=== PATIENT | female | born 1990 | race American Indian/Alaskan Native ===

== ENCOUNTER 2021-05-09 14:47 | Outpatient (CLI) | payer MEDICAID, OTHER ==
[2021-05-09 15:22] VITALS: BP 125/78
[2021-05-09] MEDS ORDERED: LACTATED RINGERS 500 ML IV ONE ×2 (17:13→17:42)
--- NOTE | 2021-05-09 19:00 | Ultrasound Report ---
Cervical ultrasound limited INDICATION: Pelvic pain in IMPRESSION: The heart rate is under 54 bpm. The placenta is grade 2 and fundal in location. No definite abnormal placental separation is demonstrated on provided images. FER measures 10.3 cm. The fetus is in a transverse position. Signer Name: Shaw Medeiros MD Signed: 05/09/2021 6:56 PM Workstation Name: [id number]
== END 2021-05-09 17:33 | disposition home or self-care (01) ==
LOC: TRG 14:47 → APU 14:49 → TRG 17:33
PROVIDERS: ATTEND Obstetrics & Gynecology
DX: O46.93 Antepartum hemorrhage, unspecified, third trimester (principal); O26.853 Spotting complicating pregnancy, third trimester; Z3A.33 33 weeks gestation of pregnancy
CPT/HCPCS: 76815; J7120

== ENCOUNTER 2021-06-17 13:38 | Inpatient (IN) | payer OTHER ==
[2021-06-14 13:54] LABS: Hemoglobin 11.3 gm/dl (10.1-14.3); Mean Corpuscular HGB Conc 32 % (30-34); Mean Corpuscular Volume 76 fl (79-97); Platelet Count 386 K/mm3 (140-440); Red Blood Count 4.58 M/mm3 (3.65-5.03); Red Cell Distribution Width 34.3 % (13.2-15.2)
[2021-06-17] MEDS ORDERED: METOCLOPRAMIDE 10 MG/2 ML INJ IV SCH (15:47)
[2021-06-17] MEDS ORDERED: FAMOTIDINE 20 MG/2 ML INJ IV SCH (15:47)
[2021-06-17] MEDS ORDERED: BICITRA ORAL LIQD 30ML PO SCH (15:47)
[2021-06-17] MEDS ORDERED: ceFAZolin/Water 2 GM/20 ML 2 GM/20 ML SYRINGE IV SCH (16:00)
[2021-06-17] MEDS: LACTATED RINGERS 1,000 ML IV SCH ×2 (16:00→17:48)
--- NOTE | 2021-06-17 16:03 | History and Physical Report ---
History of Present Illness Date of examination: 06/17/21 Date of admission: 06/17/21 13:38 Chief complaint: Contractions and ROM History of present illness: LMP: 06/26/2021 EDC Confirmation: 06/26/2021 Gestational Age: 6 1/7 weeks Past History : 4 Term Births: 3 Living Children: 3 Para: 3 Prev : 1 Aborta: 0 # 1 Delivery date: 03/04/2008 Weeks Gestation: 38 Delivery type: Anesthesia type: IV Sex: Male weight: 4-10 # 2 Delivery date: 01/07/2016 Weeks Gestation: 37 Delivery type: Anesthesia type: epidural Infant Sex: Male weight: 6-5 # 3 Delivery date: 07/08/2018 Weeks Gestation: 39 Delivery type: Anesthesia type: epidural Delivery location: [facility] Sex: male weight: 6.56 Name: Carole Son Comments: hemorrhage BREECH DOUBLE FOOTLING Past Medical History: Reviewed and updated today: Anemia Fe infusion qd x5 Pressure in back of head and syncopy only during Past Surgical History: Reviewed and updated today: Risk Factors: Smoked Tobacco Use: Never smoker HIV High Risk Behavior: low risk Alcohol Use: no Drug Use: no Past Medical History Surgery (Non-advertising sales consultant): Abnormal PAP: negative SUJEY Exposure: negative Infertility: negative Uterine Anomaly: negative Uterine Surgery (not C/S): negative Other Gynecologic Problems: negative Social Hx: Patient is Smoking History: Patient has never smoked. Infection History Hx of STD: none HIV Risk Eval: low risk Hepatitis B Risk Eval: low risk Personal hx. of genital herpes: no Partner hx. of genital herpes: no Rash, Viral, or Febrile illness since last LMP? no Varicella/Chicken Pox Status: Previous Disease Genetic History Congenital Heart Defect: Mom: no Dad: no Chantelle Disease: Mom: no Dad: no Thalassemia Mom: no Dad: no Neural Tube Defect Mom: no Dad: no Down's Syndrome Mom: no Dad: no Calvin-Sachs Mom: no Dad: no Sickle Cell Disease/Trait Mom: no Dad: no Hemophilia Mom: no Dad: no Muscular Dystrophy Mom: no Dad: no Cystic Fibrosis Mom: no Dad: no [place] Chorea Mom: no Dad: no Mental Retardation Mom: no Dad: no Fragile X Mom: no Dad: no Other Genetic/Chromosomal Disorder Mom: no Dad: no Child w/other defect Mom: no Dad: no Other: 1st cousin autism Enviromental Exposures Xray Exposure: no Medication, drug, or alcohol use since LMP: no Chemical/Other Exposure: no Exposure to Cat Liter: no Hx of Parvovirus (Fifth Disease): no Occupational Exposure to Children: none Active Medications (reviewed today): ondansetron 8 mg tablet,disintegrating (ondansetron) Take 1 tablet by mouth twice a day as needed Put pill underneath your tongue every 12 hours as needed for nausea. Current Allergies (reviewed today): No known allergies Tests: (1) Profile I ([id number]) HBsAg Screen Negative Negative *1 RPR Non Reactive Non Reactive *2 Rubella Antibodies, IgG 4.45 index Immune >0.99 *3 Non-immune <0.90 Equivocal 0.90 - 0.99 Immune >0.99 ABO Grouping A *4 Rh Factor Positive *5 Please note: Prior records for this patient's ABO / Rh type are not available for additional verification. Antibody Screen See Final Results Negative *6 Tests: (2) Ab Scr+Antibody ID ([id number]) ! Antibody Screen [A] Positive Negative *7 ! Antibody Id. #1 WEAK *8 Antibody at this time is too weak to titer or ID. ! Genoveva Titer #1 <No Reported Value> *9 ! Antibody Id. #2 <No Reported Value> *10 ! Genoveva Titer #2 <No Reported Value> *11 Tests: (3) Profile I ([id number]) WBC [H] 11.2 x10E3/uL 3.4-10.8 *12 RBC 4.72 x10E6/uL 3.77-5.28 *13 Hemoglobin [L] 9.5 g/dL 11.1-15.9 *14 Hematocrit [L] 30.5 % 34.0-46.6 *15 MCV [L] 65 fL 79-97 *16 MCH [L] 20.1 pg 26.6-33.0 *17 MCHC [L] 31.1 g/dL 31.5-35.7 *18 RDW [H] 16.9 % 11.7-15.4 *19 Platelets 409 x10E3/uL 150-450 *20 Neutrophils 65 % Not Estab. *21 Lymphs 23 % Not Estab. *22 Monocytes 9 % Not Estab. *23 Eos 2 % Not Estab. *24 Basos 1 % Not Estab. *25 ! Immature Cells <No Reported Value> *26 Neutrophils (Absolute) [H] 7.3 x10E3/uL 1.4-7.0 *27 Lymphs (Absolute) 2.6 x10E3/uL 0.7-3.1 *28 Monocytes(Absolute) [H] 1.0 x10E3/uL 0.1-0.9 *29 Eos (Absolute) 0.2 x10E3/uL 0.0-0.4 *30 Baso (Absolute) 0.1 x10E3/uL 0.0-0.2 *31 ! Immature Granulocytes 0 % Not Estab. *32 ! Immature Grans (Abs) 0.0 x10E3/uL 0.0-0.1 *33 ! NRBC <No Reported Value> *34 Hematology Comments: <No Reported Value> *35 Tests: (4) T4+TSH+T3 Upt ([id number]) ! TSH-ICMA 0.13 uU/mL *36 Reference Range: Non- Adult 0.450-4.500 First Trimester 0.100-4.000 Second Trimester 0.200-4.000 Third Trimester 0.300-4.500 ! Thyroxine (T-4), Serum [H] 13.8 ug/dL *37 Reference Range: Adults: 4.2 - 13.0 ! Resin T3 Uptake, Serum [L] 19.8 % *38 Reference Range: Children and Adults: 22.5-37.0 ! Resin T3 Uptake RATIO [L] 0.66 *39 Reference Range: Children and Adults: 0.75-1.23 ! Free Thyroxine Index 2.7 ug/dL *40 Reference Range: Children and Adults: 1.4 - 3.1 Tests: (5) Thyroid Panel ([id number]) Thyroxine (T4) [H] 12.3 ug/dL 4.5-12.0 *41 T3 Uptake 24 % 24-39 *42 Free Thyroxine Index 3.0 1.2-4.9 *43 Tests: (6) HB Solu + Rflx Frac ([id number]) Hemoglobin (Hgb) Solubility Negative Negative *44 Tests: (7) HIV Ag/Ab with Reflex ([id number]) HIV Screen 4th Generation wRfx Non Reactive Non Reactive *45 Tests: (8) HCV Antibody reflex to [place] ([id number]) HCV Ab <0.1 s/co ratio 0.0-0.9 *46 Tests: (9) Interpretation: ([id number]) ! Interpretation: SPRCS *47 Negative Not infected with HCV, unless recent infection is suspected or other evidence exists to indicate HCV infe Past History - Obstetrical History : 4 Medications and Allergies Allergies Allergy/AdvReac Type Severity Reaction Status Date / Time No Known Allergies Allergy Verified 06/13/21 18:04 Home Medications Medication Instructions Recorded Confirmed Last Taken Type Vit-Fe Fumar-FA [ 1 tab PO QDAY 05/09/21 06/13/21 05/09/21 History Vitamin] Magnesium Amino Acid Chelate 100 mg PO DAILY PRN 06/13/21 06/13/21 Unknown History [Magnesium] Active Meds: Active Medications Citric Acid/Sodium Citrate (Bicitra Oral Liqd 30ml) 30 ml PO ONCE LACEY Stop: 06/17/21 20:00 Famotidine (Famotidine 20 Mg/2 Ml Inj) 20 mg IV ONCE LACEY Oxytocin/Sodium Chloride (Pitocin/Ns 30 Unit/500ml) 30 units in 500 mls @ 0 mls/hr IV TITR LACEY Cefazolin Sodium (Ancef/Sterile Water 2 Gm/20 Ml) 2 gm in 20 mls @ 80 mls/hr IV PREOP LACEY; Protocol Stop: 06/17/21 20:00 Lactated Ringer's (Lactated Ringers) 1,000 mls @ 2,250 mls/hr IV PREOP LACEY Stop: 06/18/21 16:13 Metoclopramide HCl (Metoclopramide 10 Mg/2 Ml Inj) 10 mg IV ONCE LACEY - Vital Signs Vital signs: Vital Signs Temp Pulse Resp BP Pulse Ox 98.5 F 103 H 20 134/89 98 06/14/21 13:20 06/14/21 13:20 06/14/21 13:20 06/14/21 13:20 06/14/21 13:20 Temp Pulse Resp BP Pulse Ox 98.5 F 105 H 20 138/79 97 06/17/21 14:12 06/17/21 15:29 06/17/21 14:12 06/17/21 14:13 06/17/21 15:29 Results Result Diagrams: 06/14/21 06:00 Abnormal lab results 06/17/21 Range/Units 14:20 Membranes Rupture Positive A (Negative) All other labs normal. Assessment and Plan - Patient Problems (1) 38 weeks gestation of Current Visit: Yes Status: Acute (2) Precipitate labor Current Visit: Yes Status: Acute (3) Breech delivery Current Visit: Yes Status: Acute
[2021-06-17] MEDS ORDERED: propofoL 200 MG/20 ML VIAL IV ONE (16:21)
[2021-06-17] MEDS ORDERED: SUCCINYLCHOLINE CHLORIDE 200 MG/10 ML INJ MDV ONE (16:21)
[2021-06-17] MEDS ORDERED: OXYTOCIN DRIP 0 MILLIUNITS/0 ML BAG IV ONE (16:24)
[2021-06-17] MEDS ORDERED: KETAMINE/STERILE WATER 50 MG/ML SYRINGE ONE (16:38)
[2021-06-17] MEDS ORDERED: NITROGLYCERIN DRIP 50 MG/250 ML BOTTLE ONE (16:39)
[2021-06-17] MEDS ORDERED: miSOPROStol 200 MCG TAB ONE (16:43)
[2021-06-17] MEDS ORDERED: miSOPROStol 200 MCG TAB PR ONE (16:50)
--- NOTE | 2021-06-17 17:16 | Anesthesia Consultation ---
Anesthesia Consult and Med Hx Date of service: 06/17/21 - Airway Anesthetic Teeth Evaluation: Good ROM Head & Neck: Adequate Mental/Hyoid Distance: Adequate Mallampati Class: Class II Intubation Access Assessment: Probably Good - Pulmonary Exam CTA: Yes - Cardiac Exam Cardiac Exam: RRR - Pre-Operative Health Status ASA Pre-Surgery Classification: ASA2, Emergency Proposed Anesthetic Plan: Spinal (previous c/s), MAC - Pulmonary Hx Smoking: No Hx Asthma: Yes (as a child) Hx Respiratory Symptoms: No SOB: No COPD: No Hx Pneumonia: No Hx Sleep Apnea: No - Cardiovascular System Hx Hypertension: No Hx Coronary Artery Disease: No Hx Heart Attack/AMI: No Hx Angina: No Hx Percutaneous Transluminal Coronary Angioplasty (PTCA): No Hx Cardia Arrhythmia: No Hx Pacemaker: No Hx Internal Defibrillator: No Hx Valvular Heart Disease: No Hx Heart Murmur: No Hx Peripheral Vascular Disease: No - Central Nervous System Hx Neuromuscular Disorder: No Hx Seizures: Yes (Possible seizures when in 2016) CVA: No Hx Back Pain: No Hx Psychiatric Problems: No - Gastrointestinal Hx Ulcer: No Hx Gastroesophageal Reflux Disease: Yes - Endocrine Hx Renal Disease: No Hx End Stage Renal Disease: No Hx Cirrhosis: No Hx Liver Disease: No Hx Insulin Dependent Diabetes: No Hx Non-Insulin Dependent Diabetes: No Hx Thyroid Disease: No Hx Hypothyroidism: No Hx Hyperthyroidism: No - Hematic Hx Anemia: Yes (Received Iron infusions 04/2021) Hx Sickle Cell Disease: No - Other Systems Hx Alcohol Use: No Hx Substance Use: No Hx Cancer: No Hx Obesity: No
--- NOTE | 2021-06-17 17:16 | Anesthesia Day of Surgery ---
Anesthesia Day of Surgery - Day of Surgery Patient Examined: No (Emergently taken back for c/s) Patient H&P Reviewed: No Patient is NPO: No Beta Blockers: No Cardiac Clearance: No Pulmonary Clearance: No Grabiel's Test: N/A
--- NOTE | 2021-06-17 17:25 | Procedure Note ---
OB Delivery Note - Delivery Date of Delivery: 06/17/21 Surgeon: KARON GONZALES Estimated blood loss: 500cc - Vaginal Delivery presentation: breech (. ) Intrapartum events: precipitous labor- <3hr Delivery induction: none Delivery monitor: external FHT, external uterine Route of delivery: Delivery placenta: manual (Difficulty with delivering placenta after pitocin given. Nitroglycerin given by Anesthesia to allow for manual extraction. Cytotec 800mcg IN given as well as pitocin, most blood loss d/t delayed delivery of placenta. Scant blood from vagina with fundal massage. Fundus firm, no lacerations. ) Episiotomy: none Delivery laceration: none Anesthesia: other (MAC) Delivery comments: Patient was taken to the OR and placed on the OR bed. Exam revealed parts to be at +[address] patient in [place] and instrd to push, left foot delivered and extraction of right foot. Infant rotated to allow uncomplicated breech delivery with spontaneous cry and excellent tone. Mouth and nose were bulbed suctioned, cord doubly clamped and cut and given to MARGARET team who was present. - Infant A at 1 minute: 8 at 5 minutes: 9 Infant Gender: Female
[2021-06-17] MEDS ORDERED: ONDANSETRON 4 MG/2 ML INJ IV PRN ×2 (18:37)
[2021-06-17] MEDS ORDERED: METHYLERGONOVINE MALEATE 0.2 MG/ML VIAL IM PRN (18:37)
[2021-06-17] MEDS ORDERED: IBUPROFEN 600 MG TAB PO SCH (18:37)
[2021-06-17] MEDS ORDERED: MAGNESIUM HYDROXIDE (MOM) ORAL LIQD UDC PO PRN ×2 (18:37)
[2021-06-17] MEDS ORDERED: LOPERAMIDE 2 MG CAP PO PRN (18:37)
[2021-06-17] MEDS ORDERED: WITCH HAZEL/ GLYCERIN PAD TP PRN ×2 (18:37)
[2021-06-17] MEDS ORDERED: diphenhydrAMINE 25 MG CAP PO PRN ×2 (18:37)
[2021-06-17] MEDS ORDERED: PROMETHAZINE 25 MG RECT SUPP PR PRN ×2 (18:37)
[2021-06-17] MEDS ORDERED: LANOLIN/ZINC/DIMETHICONE (LANSINOH) 7 GM TP PRN ×2 (18:37)
[2021-06-17] MEDS ORDERED: OXYTOCIN DRIP 30 UNITS/500 ML BAG IV SCH (18:37)
[2021-06-17] MEDS ORDERED: ACETAMINOPHEN 325 MG TAB PO PRN (18:37)
[2021-06-17] MEDS ORDERED: PROMETHAZINE 25 MG TAB PO PRN ×2 (18:37)
[2021-06-17] MEDS ORDERED: CARBOPROST TROMETHAMINE 250 MCG/1 ML INJ IM PRN (18:37)
[2021-06-17] MEDS: KETOROLAC 30 MG/1 ML INJ IV PRN (18:52)
[2021-06-17] MEDS: traMADol 50 MG TAB PO PRN (21:59)
[2021-06-18] MEDS: KETOROLAC 30 MG/1 ML INJ IV PRN (00:38)
[2021-06-18] MEDS: traMADol 50 MG TAB PO PRN (04:18)
[2021-06-18 06:30] LABS: Hematocrit 31.7 % (30.3-42.9); Hemoglobin 10.4 gm/dl (10.1-14.3)
[2021-06-18 09:03] VITALS: BP 122/96
--- NOTE | 2021-06-18 11:13 | Progress Note ---
Assessment and Plan - Patient Problems (1) , delivered Current Visit: Yes Status: Acute Plan to address problem: -routine pp care -d/c home today if infant cleared for dc home. (2) Breech delivery Current Visit: Yes Status: Acute Subjective - Subjective Date of service: 06/18/21 Principal diagnosis: PPD #1 s/p breech delivery Interval history: Pt doing well and does desire d/c home today if cleared for d/c home. She does still want BTL and inquired about having hernia repair at the same time. I d/w that we can coordinate this in the office. She will not be d/c home on any bc at this time. I advised h/h is stable and normal. Patient reports: appetite normal, voiding normally, pain well controlled, no dizzy ambulation [place]: doing well, bottle feeding Objective - Vital Signs Latest vital signs: Vital Signs Temp Pulse Resp BP BP Pulse Ox Pulse Ox 06/18/21 07:57 97.4 F L 85 20 122/96 97 06/18/21 05:23 98.0 F 20 120/78 06/18/21 04:18 18 06/18/21 01:08 18 06/18/21 00:38 18 06/18/21 00:25 97.9 F 91 H 20 132/77 96 06/18/21 00:01 98 06/17/21 22:59 18 06/17/21 21:59 18 06/17/21 20:52 98.9 F 101 H 142/78 98 06/17/21 19:33 98.0 F 101 H 98 06/17/21 19:28 107 H 98 06/17/21 19:27 97 H 134/77 06/17/21 19:23 102 H 99 06/17/21 19:18 103 H 98 06/17/21 19:13 101 H 99 06/17/21 19:12 100 H 134/72 06/17/21 19:08 99 H 98 06/17/21 19:03 103 H 98 06/17/21 18:58 104 H 98 06/17/21 18:57 100 H 136/86 06/17/21 18:53 108 H 97 06/17/21 18:52 20 06/17/21 18:48 108 H 97 06/17/21 18:43 101 H 98 06/17/21 18:42 108 H 136/88 06/17/21 18:38 104 H 98 06/17/21 18:33 102 H 99 06/17/21 18:28 105 H 99 06/17/21 18:27 100 H 138/60 06/17/21 18:23 103 H 98 06/17/21 18:18 102 H 99 06/17/21 18:13 99 H 100 06/17/21 18:12 93 H 142/67 06/17/21 18:08 95 H 99 06/17/21 18:03 96 H 98 06/17/21 18:01 103 H 92 06/17/21 17:58 94 H 97 06/17/21 17:57 88 143/82 06/17/21 17:53 91 H 100 06/17/21 17:48 88 100 06/17/21 17:43 90 99 06/17/21 17:42 86 143/81 06/17/21 17:38 88 99 06/17/21 17:33 92 H 99 06/17/21 17:28 92 H 99 06/17/21 17:27 89 137/83 06/17/21 17:23 91 H 100 06/17/21 17:18 89 100 06/17/21 17:15 97.8 F 20 06/17/21 17:13 84 100 06/17/21 17:10 84 136/73 06/17/21 17:08 91 H 100 06/17/21 17:07 86 94 06/17/21 15:29 105 H 97 06/17/21 15:24 104 H 98 06/17/21 15:19 95 H 99 06/17/21 15:14 104 H 98 06/17/21 15:09 103 H 98 06/17/21 15:04 96 H 98 06/17/21 14:59 96 H 98 06/17/21 14:54 85 98 06/17/21 14:49 93 H 98 06/17/21 14:44 100 H 98 06/17/21 14:39 88 98 06/17/21 14:34 107 H 98 06/17/21 14:29 96 H 99 06/17/21 14:24 85 99 06/17/21 14:19 100 H 98 06/17/21 14:14 97 H 98 06/17/21 14:13 96 H 138/79 06/17/21 14:12 98.5 F 98 H 20 138/79 98 06/17/21 14:09 103 H 98 06/17/21 14:08 105 H 151/87 06/17/21 14:04 110 H 98 Intake and Output 06/17/21 06/18/21 06/18/21 22:59 06:59 14:59 Intake Total 1600 240 Output Total 200 Balance 1600 40 Intake: IV 1000 Lactated Ringers 1,000 ml 1000 @ 2250 mls/hr IV PREOP [facility] Rx#:[id number] Oral 360 240 Intake, Free Water 240 Output: Urine 200 Void 200 Other: Total, Intake Amount 360 240 Total, Output Amount 200 - Exam Cardiovascular: Present: Normal S1, Normal S2, No murmurs Lungs: Present: Clear to auscultation, Normal air movement Abdomen: Present: normal appearance, soft, normal bowel sounds. Absent: distention, tenderness, guarding Uterus: Present: normal, firm, fundal height below umbilicus Extremities: Present: normal. Absent: tenderness, edema - Labs Labs: Abnormal lab results 06/17/21 Range/Units 14:20 Membranes Rupture Positive A (Negative)
--- NOTE | 2021-06-18 11:13 | Discharge Summary ---
Providers - Providers Date of Admission: 06/17/21 13:38 Date of discharge: 06/18/21 Attending physician: KARON GONZALES Primary care physician: CONTRACT TECHNICAL WRITER Hospitalization Reason for admission: active labor, rupture of membranes, IUP at term Delivery: , breech extraction Procedure details: see delivery note Episiotomy: other (see delivery notes) Laceration: other (see delivery notes) Other procedures: none complications: none Discharge diagnosis: IUP at term delivered, [place] baby: female Hospital course: Pt s/p precipitous delivery breech with . Her pp course has not been complicated. Will plan for d/c this pm if infant cleared for d/c home. Condition at discharge: Good Disposition: 01 HOME / SELF CARE / HOMELESS Plan - Provider Discharge Summary Activity: routine, no sex for 6 weeks, no heavy lifting 4 weeks Additional instructions: [] Smoking cessation referral if applicable(refer to patient education folder for contact #) [] Refer to [facility]'s [facility] Booklet Call your doctor immediately for: * Fever > 100.5 * Heavy vaginal bleeding ( >1 pad per hour) * Severe persistent headache * Shortness of breath * Reddened, hot, painful area to leg or breast * Drainage or odor from incision. * Keep incision clean and dry at all times and follow doctor's instructions regarding bathing/showering f/u office in 4 wks for ppv - Follow up plan Follow up: PRIMARY CARE, [Primary Care Provider] - 7 Days
[2021-06-18] MEDS: IBUPROFEN 800 MG TAB PO PRN ×2 (12:27→19:49)
--- NOTE | 2021-06-18 12:33 | Post Anesthesia Evaluation ---
- Post Anesthesia Evaluation Patient Participated: Yes Airway Patent: Yes Stable Respiratory Function: Yes Nausea/Vomiting: No Temp > 96.8F: Yes Pain Manageable: Yes Adequeate Hydration: Yes Anesthesia Complications: No Block Receding Appropriately: Yes Patient on Ventilator: No
[2021-06-18] MEDS ORDERED: TETANUS,DIPH,PERTUSS(ACELL) VACCINE 0.5 ML SYRINGE IM ONE (17:14)
[2021-06-20] MEDS ORDERED: LACTATED RINGERS 1,000 ML IV SCH (05:30)
[2021-06-20] MEDS ORDERED: BICITRA ORAL LIQD 30ML PO SCH (07:00)
[2021-06-20] MEDS ORDERED: ceFAZolin/Water 2 GM/20 ML 2 GM/20 ML SYRINGE IV SCH (07:00)
[2021-06-20] MEDS ORDERED: FAMOTIDINE 20 MG/2 ML INJ IV SCH (07:00)
[2021-06-20] MEDS ORDERED: METOCLOPRAMIDE 10 MG/2 ML INJ IV SCH (07:00)
[2021-06-20] MEDS ORDERED: OXYTOCIN DRIP 30 UNITS/500 ML BAG IV SCH (08:00)
== END 2021-06-18 22:45 | disposition home or self-care (01) | DRG 775 ==
LOC: LD 13:38 → OB 20:39
PROVIDERS: ADMIT Obstetrics & Gynecology; ATTEND Obstetrics & Gynecology
PROC: 10E0XZZ Delivery of Products of Conception, External Approach (ICD-10-PCS; principal; 2021-06-17)
PROC: 3E0234Z Introduction of Serum, Toxoid and Vaccine into Muscle, Percutaneous Approach (ICD-10-PCS; 2021-06-18)
DX: O32.1XX0 Maternal care for breech presentation, not applicable or unspecified (principal); O62.3 Precipitate labor; Z20.822 Contact with and (suspected) exposure to COVID-19; Z23 Encounter for immunization; Z37.0 Single live birth; Z3A.38 38 weeks gestation of pregnancy; O99.52 Diseases of the respiratory system complicating childbirth; J45.909 Unspecified asthma, uncomplicated; O99.62 Diseases of the digestive system complicating childbirth; K21.9 Gastro-esophageal reflux disease without esophagitis; O34.211 Maternal care for low transverse scar from previous cesarean delivery
CPT/HCPCS: 36415; 84112; 85014; 85018; 85027; 86592; 86850; 86900; 86901; G0378; J7120; J0330; J1885; J2590; J2704; J3490; U0003